=== PATIENT | female | born 1995 | race Caucasian/White ===

== ENCOUNTER 2017-02-17 12:13 | Emergency (ER) | payer MEDICAID, OTHER ==
[~2017-02-17] VITALS: Ht 149.9 cm; Wt 48.0 kg
[2017-02-17 12:15] VITALS: Ht 149.9 cm; Wt 48.0 kg
[2017-02-17] MEDS ORDERED: ACETAMINOPHEN 325 MG TAB PO STA (12:57)
[2017-02-17 13:19] LABS: BASOPHILS % 0.3 % (0.0-2.0); EOSINOPHILS % 0.1 % (0.0-7.0); HEMATOCRIT 34.7 % (37.0-47.0); HEMOGLOBIN 12.4 g/dl (12.0-16.0); LYMPHOCYTES # 1.2 10^3/ul (0.8-2.9); LYMPHOCYTES % 9.7 % (18.0-55.0); MEAN CORPUSCULAR HEMOGLOBIN 29.5 pg (29.0-33.0); MEAN CORPUSCULAR HGB CONC 35.7 g/dl (32.0-37.0); MEAN CORPUSCULAR VOLUME 82.6 fl (72.0-104.0); MEAN PLATELET VOLUME 9.5 fl (7.4-10.4); MONOCYTE # 0.9 10^3/ul (0.3-0.9); MONOCYTES % 7.8 % (0.0-13.0); NEUTROPHIL # 9.7 10^3/ul (1.6-7.5); NEUTROPHILS % 81.7 % (30.0-74.0); PLATELET COUNT 274 10^3/UL (140-415); RED CELL DISTRIBUTION WIDTH 12.3 % (11.5-14.5); WHITE BLOOD COUNT 11.8 10^3/ul (4.8-10.8)
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
[2017-02-17] MEDS ORDERED: ACET325T33 PO (15:23)
== END 2017-02-17 15:44 | disposition home or self-care (01) ==
LOC: FTE 12:13
DX: O9A.211 Injury, poisoning and certain other consequences of external causes complicating pregnancy, first trimester (principal); S39.93XA Unspecified injury of pelvis, initial encounter; R10.2 Pelvic and perineal pain; V49.50XA Passenger injured in collision with unspecified motor vehicles in traffic accident, initial encounter; Z3A.13 13 weeks gestation of pregnancy
CPT/HCPCS: 36415; 76801; 84702; 85025; 86900; 86901; Z7502; Z7610

== ENCOUNTER 2017-05-08 21:44 | Outpatient (CLI) | payer MEDICAID ==
[~2017-05-08] VITALS: Ht 149.9 cm; Wt 53.0 kg
[~2017-05-08 21:44] MED LIST: ACET325T33 PO
[2017-05-08 21:48] VITALS: Ht 149.9 cm; Wt 53.0 kg
[2017-05-08 21:49] VITALS: BP 108/54; PULSE 82; RESP 18
[2017-05-08] MEDS ORDERED: TERBUTALINE 1 MG/ML INJ SC ONE (23:00)
[2017-05-08] MEDS ORDERED: LACTATED RINGER'S 1,000 ML IV SCH (23:17)
[2017-05-08] MEDS ORDERED: ONDANSETRON 4 MG INJ IV ONE (23:20)
--- NOTE | 2017-05-08 23:27 | PN ---
Triage Information Date/Time Reason for visit: contractions and spotting Weeks of Gestation 24+2 /Para 1/0 Diabetes: none Hypertention: none Additional information Pt reports contractions starting at 2030 and vaginal spotting. Also reports normal FM, denies LOF. Objective Vital Signs Date Time Temp Pulse Resp B/P Pulse Ox O2 Delivery O2 Flow Rate FiO2 05/08/17 21:49 98.4 82 18 108/54 Room Air Heart Rate: 140's (FHT) Contractions: < 5 Minutes Apart (uterine irritability) Exam No active vaginal bleeding Results/Medications Medications Current Medications Lactated Ringer's (Lr) 1,000 ml @ 125 mls/hr Q8H IV ; Start 05/08/17 at 23:17 Imaging Results PROCEDURE: US OB. CLINICAL INDICATION: Contractions. TECHNIQUE: Multiple sonographic images of the pelvis were obtained. Transabdominal imaging only was performed. The images were reviewed on a PACS workstation. COMPARISON: 02/17/2017 FINDINGS: The cervix is closed with a length of 4.7 cm. There is a single viable intrauterine gestation. Cardiac activity is present with 106 beats per minute. There is a breech presentation, head maternal right. Measurements were made in order to determine age. The results are as follows: BPD = 6.05 cm HC = 21.79 cm AC = 20.65 cm FL = 4.37 cm Estimated gestational age of approximately 24 weeks 4 days. The estimated date of delivery is 08/24/2017 The EFW = 729 g. EFW percentile: 62% The placenta is posterior fundal, grade 0. There is no evidence for an abruption or placenta previa. There is an adequate amount of amniotic fluid. IMPRESSION: 1. Single viable intrauterine gestation of approximately 24 weeks 4 days, based on ultrasound measurements. The estimated date of delivery is 08/24/2017. 2. Closed cervix measuring 4.7 cm. 3. Breech presentation, head maternal right. Disposition: Discharge Assessment/Plan contractions without e/o PTL IVF bolus and Terbutaline x1 w/improvement in sxs NST reactive Pt appropriate for d/c home Encourage pt to f/up in clinic as scheduled PTL and PPROM precautions reviewed CEDRIC LANDRY MD May 08, 2017 23:27
--- NOTE | 2017-05-08 23:55 | RADRPT ---
PROCEDURE: US OB. CLINICAL INDICATION: Contractions. TECHNIQUE: Multiple sonographic images of the pelvis were obtained. Transabdominal imaging only w as performed. The images were reviewed on a PACS workstation. COMPARISON: 02/17/2017 FINDINGS: The cervix is closed with a length of 4.7 cm. There is a single viable intrauterine gestation. Cardiac activity is present with 106 beats per minute. There is a breech presentation, head maternal right. Measurements were made in order to determine age. The results are as follows: BPD = 6.05 cm HC = 21.79 cm AC = 20.65 cm FL = 4.37 cm Estimated gestational age of approximately 24 weeks 4 days. The estimated date of delivery is 08/24/2017 The EFW = 729 g. EFW percentile: 62% The placenta is posterior fundal, grade 0. There is no evidence for an abruption or placenta previa. There is an adequate amount of amniotic fluid. IMPRESSION: 1. Single viable intrauterine gestation of approximately 24 weeks 4 days, based on ultrasound measu rements. The estimated date of delivery is 08/24/2017. 2. Closed cervix measuring 4.7 cm. 3. Breech presentation, head maternal right. RPTAT: HTAR .Aureliano Cordero MD, Date Time Electronically viewed and signed by .Aureliano Cordero MD, on 05/08/2017 23:55 .R/
[2017-05-09 01:22] LABS: ADD UMIC NO; UR ASCORBIC ACID NEGATIVE (NEGATIVE); UR BILIRUBIN (Dip) NEGATIVE (NEGATIVE); UR BLOOD (Dip) NEGATIVE (NEGATIVE); UR CLARITY CLEAR (CLEAR); UR COLOR STRAW (YELLOW); UR GLUCOSE (Dip) NEGATIVE (NEGATIVE); UR KETONES (Dip) 1+ mg/dL (NEGATIVE); UR LEUKOCYTE ESTERASE (Dip) NEGATIVE Leu/ul (NEGATIVE); UR NITRITE (Dip) NEGATIVE (NEGATIVE); UR SPECIFIC GRAVITY (Dip) 1.005 (1.003-1.030); UR TOTAL PROTEIN (Dip) NEGATIVE (NEGATIVE); UR UROBILINOGEN (Dip) NEGATIVE (NEGATIVE)
[2017-05-09] MEDS ORDERED: PREN-93 PO (02:34)
== END 2017-05-09 02:41 | disposition home or self-care (01) ==
LOC: OBT 21:44 → L-D 21:46 → OBT 05-09 02:41
PROVIDERS: ATTEND Obstetrics & Gynecology
DX: O62.9 Abnormality of forces of labor, unspecified (principal); O46.8X2 Other antepartum hemorrhage, second trimester; Z3A.24 24 weeks gestation of pregnancy
CPT/HCPCS: 76815; 76817; 81003; J2405; J3105; J7120; Z7500; G0463

== ENCOUNTER 2017-05-09 10:52 | Outpatient (CLI) | payer MEDICAID ==
[~2017-05-09] VITALS: Ht 124.5 cm; Wt 53.4 kg
[~2017-05-09 10:52] MED LIST changes: +PREN-93 PO
[2017-05-09 11:15] VITALS: Ht 124.5 cm; Wt 53.4 kg
--- NOTE | 2017-05-09 12:08 | TRIAGE ---
OB Triage Datetime Report Generated by CPN: 05/09/2017 12:08 Datetime: 05/09/2017 11:49 Labor Evaluation Frequency: 0 Duration (sec)2399: 0 Quality: Mild Resting Tone Bemiss: Relaxed Contraction Comments: PT DENIES UC'S Heart Rate FHR Baseline Rate: 145 Monitor Mode: External US Variability: Moderate 6-25 bpm Accelerations: 15X15 Decelerations: None Category: Category I Datetime: 05/09/2017 11:03 Stage of : OB Triage Assessment Type: Triage Maternal Assessment Level of Consciousness: Fully Conscious DTR's/Clonus: DTRs 2+; No Clonus Headache: Denies Blurred Vision: No Respiratory Effort: Unlabored; Regular Rhythm; Equal Expansion Breath Sounds, Left: Clear and Equal Breath Sounds, Right: Clear and Equal Nausea/Vomiting: Denies RUQ Epigastric Pain: Denies Facial Edema: None Temperature Route: Axillary Fall Risk Assessment History of Falling: (0) No Secondary Diagnosis: (0) No Ambulatory Aid: (0) Bedrest/Nurse Assist IV Therapy: (0) No Gait: (0) Normal/Bedrest/Immobile Labor Evaluation Frequency: 0 Monitor Mode: External Pattern: Normal: <= 5 Contractions in 10 Minutes Resting Tone Bemiss: Relaxed Heart Rate FHR Baseline Rate: 145 Monitor Mode: External US Variability: Moderate 6-25 bpm Accelerations: 10X10 Decelerations: None Category: Category I Pain Assessment Pain Scale: 0 Pain Presence: None/Denies Pain Type: N/A Pain Goal: 3 Pain Relief Measures: Comfort Measures Datetime: 05/09/2017 11:00 Time of Arrival: 05/09/2017 10:45 EGA: 24.3 Arrived By: Ambulatory Arrived From: Home Chief Complaint: F/U FROM YESTERDAY, HR REPORTED LOW BY U/S, INSTRUCTED TO RETURN TODAY FOR F/U Movement: Present Contractions: Denies/Absent Rupture of Membranes: Denies Vaginal Bleeding: None Vaginal Discharge: Denies Recent Sexual Intercouse: Denies Abdominal Trauma: Not Applicable Patient Complaints: None Time Provider Notified: 05/09/2017 11:49 Provider Notified: DR. CAVAZOS Initial Plan: MONITOR, NST Datetime: 05/09/2017 02:24 Stage of : OB Triage Datetime: 05/09/2017 02:00 Labor Evaluation Frequency: 0 Monitor Mode: External Quality: Mild Pattern: Normal: <= 5 Contractions in 10 Minutes Resting Tone Bemiss: Relaxed FHR Baseline Changes: No Baseline Change Variability: Moderate 6-25 bpm Datetime: 05/09/2017 01:00 Labor Evaluation Frequency: IRREGULAR Monitor Mode: External Duration (sec)2399: 30-60 Quality: Mild Pattern: Normal: <= 5 Contractions in 10 Minutes Resting Tone B[place]iss: Relaxed Datetime: 05/09/2017 00:00 Labor Evaluation Frequency: IRREGULAR Monitor Mode: External Duration (sec)2399: 30-60 Quality: Mild Pattern: Normal: <= 5 Contractions in 10 Minutes Resting Tone B[place]iss: Relaxed Datetime: 05/08/2017 23:00 Labor Evaluation Frequency: IRREGULAR Monitor Mode: External Duration (sec)2399: 30-60 Quality: Mild Pattern: Normal: <= 5 Contractions in 10 Minutes Resting Tone Bemiss: Relaxed Datetime: 05/08/2017 22:53 Stage of : OB Triage Datetime: 05/08/2017 22:13 EGA: 24.2 Datetime: 05/08/2017 21:53 Labor Evaluation Frequency: IRRITABILITY NOTED Monitor Mode: External Quality: Mild Pattern: Normal: <= 5 Contractions in 10 Minutes Resting Tone Bemiss: Relaxed Heart Rate FHR Baseline Rate: 144 Monitor Mode: External US FHR Baseline Changes: No Baseline Change Variability: Moderate 6-25 bpm Accelerations: 10X10 Decelerations: None Category: Category I Datetime: 05/08/2017 21:40 Stage of : OB Triage Time of Arrival: 05/08/2017 21:38 Arrived By: Wheelchair Arrived From: Home Chief Complaint: CRAMPING/ BLEEDING Movement: Present Contractions: Denies/Absent Time Contractions Began: 05/09/2017 20:30 Rupture of Membranes: Denies Vaginal Bleeding: None Vaginal Discharge: Denies Recent Sexual Intercouse: Denies Abdominal Trauma: Not Applicable Patient Complaints: None Time Provider Notified: 05/08/2017 22:33 Provider Notified: DR GARCÍA Initial Plan: CALL JOAN HACKETT Maternal Assessment Level of Consciousness: Fully Conscious DTR's/Clonus: DTRs 2+; No Clonus Headache: Denies Blurred Vision: No Respiratory Effort: Unlabored; Regular Rhythm; Equal Expansion Breath Sounds, Left: Clear and Equal Breath Sounds, Right: Clear and Equal Nausea/Vomiting: Denies RUQ Epigastric Pain: Denies Lower Extremities Edema: None Degree: None Upper Extremities Edema: None Degree: None Facial Edema: None Temperature Route: Oral Fall Risk Assessment History of Falling: (0) No Secondary Diagnosis: (0) No Ambulatory Aid: (0) Bedrest/Nurse Assist IV Therapy: (0) No Gait: (0) Normal/Bedrest/Immobile Mental Status: (0) Oriented to Own Ability Fall Score: 0 Fall Risk Score Definition: No Risk: No action required Monitor Mode: External Monitor Mode: External US Pain Assessment Pain Scale: 5 Pain Presence: Intermittent Pain Type: Contraction Pain Location: Abdomen; Back
--- NOTE | 2017-05-09 18:30 | PN ---
Triage Information Date/Time 05/09/2017 Reason for visit: Uterine contractions Weeks of Gestation 24 weeks and 4 days /Para Diabetes: none Hypertention: none Additional information 22 years old with IUP at 24 weeks and 4 days with contractions , was seen yesterday and been ruled out for labor. Us report showed 106 HR. She was sent by Dr. Hernandez again for NSt. Denies any complaint Objective Heart Rate: 130's Contractions: >10 Minutes Apart Exam GA: A&O, NAD Abdomen: Soft, non tender, Fundal Height consistent with date NST: Cat 1 and Base line HR in normal range, CL: 4.7 cm yesterday Rare contractions Disposition: Discharge Assessment/Plan IUP at 24 weeks and 4 days NST Cat 1. appropriate for GA. CL: 4.7 cm Doing well No evidence of PTL DC home Strict labor precaution [facility] follow up in 24- 48 hours with her OB office RTC ARTEMIO MULLINS MD May 09, 2017 18:30
== END 2017-05-09 11:57 | disposition home or self-care (01) ==
LOC: OBT 10:52 → L-D 10:52 → OBT 11:57
PROVIDERS: ATTEND Obstetrics & Gynecology
DX: O62.9 Abnormality of forces of labor, unspecified (principal); Z3A.24 24 weeks gestation of pregnancy
CPT/HCPCS: G0463